=== PATIENT | male | born 1985 | race African-American/Black ===

== ENCOUNTER 2017-07-12 11:12 | Emergency (ER) | payer SELFPAY ==
[2017-07-12 11:38] VITALS: BP 133/86; PULSE 63; TEMP 98.9; BMI 31.4
--- NOTE | 2017-07-12 11:42 | PDOC ---
History of Present Illness - General Chief Complaint: Migraine Headache Stated Complaint: S/P MIGRAINE, FOGGY Time Seen by Provider: 07/12/17 11:18 History Source: Patient Exam Limitations: No Limitations - History of Present Illness Initial Comments: 32 yo M history migraine headaches presents s/p headache a few days ago. He states that typically he has photosensitivity and scotomas with his headaches. This was a typical headache, but he states that he has felt "foggy" ever since the headache. No weakness, numbness, but he has not felt like himself. He does not have headaches that wake him from sleep. He does state that his appetite has been decreased from normal and he has had poor energy. Past History - Past Medical History Allergies/Adverse Reactions: Allergies Allergy/AdvReac Type Severity Reaction Status Date / Time No Known Allergies Allergy Verified 07/12/17 11:13 Home Medications: Ambulatory Orders NK [No Known Home Medication] 07/12/17 COPD: No Other medical history: DENIES - Surgical History Abdominal Surgery: Yes (UNKNOWN) - Suicide/Smoking/Psychosocial Hx Smoking History: Never smoked Have you smoked in the past 12 months: No Information on smoking cessation initiated: No Hx Alcohol Use: No Drug/Substance Use Hx: No Substance Use Type: Marijuana Review of Systems - Review of Systems Able to Perform ROS?: Yes Comments:: GENERAL/CONSTITUTIONAL: No fever or chills. +Weakness. HEAD, EYES, EARS, NOSE AND THROAT: No change in vision. No ear pain or discharge. No sore throat. CARDIOVASCULAR: No chest pain or shortness of breath. RESPIRATORY: No cough, wheezing, or hemoptysis. GASTROINTESTINAL: No nausea, vomiting, diarrhea or constipation. GENITOURINARY: No dysuria, frequency, or change in urination. MUSCULOSKELETAL: No joint or muscle swelling or pain. No neck or back pain. SKIN: No rash NEUROLOGIC: No headache, vertigo, loss of consciousness, or change in strength/ sensation. ENDOCRINE: No increased thirst. No abnormal weight change. HEMATOLOGIC/LYMPHATIC: No anemia, easy bleeding, or history of blood clots. ALLERGIC/IMMUNOLOGIC: No hives or skin allergy. *Physical Exam - Vital Signs Last Vital Signs Temp Pulse Resp BP Pulse Ox 98.9 F 63 20 133/86 99 07/12/17 11:13 07/12/17 11:13 07/12/17 11:13 07/12/17 11:13 07/12/17 11:13 - Physical Exam Comments: GENERAL: Awake, alert, and fully oriented, in no acute distress HEAD: No signs of trauma EYES: PERRLA, EOMI, sclera anicteric, conjunctiva clear ENT: Auricles normal inspection, hearing grossly normal, nares patent, oropharynx clear without exudates. Moist mucosa NECK: Normal ROM, supple, no lymphadenopathy, JVD, or masses LUNGS: Breath sounds equal, clear to auscultation bilaterally. No wheezes, and no crackles HEART: Regular rate and rhythm, normal S1 and S2, no murmurs, rubs or gallops ABDOMEN: Soft, nontender, normoactive bowel sounds. No guarding, no rebound. No masses EXTREMITIES: Normal range of motion, no edema. No clubbing or cyanosis. No cords, erythema, or tenderness NEUROLOGICAL: Cranial nerves II through XII grossly intact. Normal speech, normal gait. Strength and sensation intact. SKIN: Warm, Dry, normal turgor, no rashes or lesions noted. ED Treatment Course - LABORATORY CBC & Chemistry Diagram: 07/12/17 12:55 07/12/17 12:55 Medical Decision Making - Medical Decision Making Labs and CTH discussed with patient. No acute findings. Recommended outpatient f /u if symptoms persist. *DC/Admit/Observation/Transfer Diagnosis at time of Disposition: Headache Qualifiers: Headache type: unspecified Headache chronicity pattern: unspecified pattern Intractability: not intractable Qualified Code(s): R51 - Headache - Discharge Dispostion Disposition: HOME Condition at time of disposition: Stable Admit: No - Referrals - Patient Instructions Printed Discharge Instructions: DI for Headache - Post Discharge Activity
[2017-07-12 13:22] LABS: BASO % 1.1 % (0-2.0); EOS % 0.4 % (0-4.5); HEMATOCRIT 47.6 % (35.4-49); HEMOGLOBIN 15.8 GM/dl (11.7-16.9); LYMPH % 29.7 % (8-40); MCH 27.9 pg (25.7-33.7); MCHC 33.2 g/dl (32.0-35.9); MEAN CELL VOLUME 84.2 fl (80-96); MEAN PLT VOLUME 9.1 fl (7.5-11.1); MONO % 7.1 % (3.8-10.2); NEUT % 61.7 % (42.8-82.8); PLATELET COUNT 186 K/MM3 (134-434); RBC 5.66 M/mm3 (4.00-5.60); RDW 12.8 % (11.9-15.9); WHITE BLOOD COUNT 4.7 K/mm3 (4.0-10.8)
[2017-07-12 13:38] LABS: ALBUMIN 4.8 g/dl (3.5-5.0); ALK PHOS 35 U/L (32-92); ANION GAP 8 (8-16); BILIRUBIN,TOTAL 1.2 mg/dl (0.2-1.0); BLOOD UREA NITROGEN 11 mg/dl (7-18); CALCIUM 9.4 mg/dl (8.4-10.2); CHLORIDE 103 mmol/L (98-107); CO2 24 mmol/L (22-28); CREATININE 0.9 mg/dl (0.6-1.3); GLUCOSE,RANDOM 110 mg/dl (74-106); SGOT/AST 19 U/L (10-42); SGPT/ALT 23 U/L (10-40); SODIUM 135 mmol/L (136-145); TOT PROT 7.7 g/dl (6.4-8.3)
== END 2017-07-12 14:44 | disposition home or self-care (01) ==
LOC: FER 11:12
DX: R51 Headache (principal)
CPT/HCPCS: 36415; 70450-TC; 80053; 82550; 82553; 85025; 99282-25

== ENCOUNTER 2019-02-03 16:34 | Emergency (ER) | payer OTHER ==
[2019-02-03 16:59] VITALS: BP 143/81; PULSE 98; TEMP 97.8; BMI 30.8
--- NOTE | 2019-02-03 17:54 | PDOC ---
History of Present Illness - General Chief Complaint: Lightheaded Stated Complaint: DIZZINESS Time Seen by Provider: 02/03/19 17:00 - History of Present Illness Initial Comments: 02/03/19 17:54 34m with no pmh presents with fogginess for the past week associated with trouble concentrating. Saw his a primary a few weeks ago who told him his blood sugar was "borderline" so he wants to have it checked out. He admits that he has a lot of stressors going on lately with work (his coworker signed a multi-million dollar contract while he missed the opportunity) , as well as with his family. He deals with the stress by binge-eating a lot of sweet treats. No vomiting induced though. He now wonders if his episodes of dizziness and fogginess have anything to do with the antibug spray he coated the interior of his car with last week. Past History - Past Medical History Allergies/Adverse Reactions: Allergies Allergy/AdvReac Type Severity Reaction Status Date / Time No Known Allergies Allergy Verified 02/03/19 16:34 Home Medications: Ambulatory Orders NK [No Known Home Medication] 07/12/17 COPD: No - Surgical History Abdominal Surgery: Yes (UNKNOWN, "TOOK OUT INFECTIOUS FLUID") - Psycho Social/Smoking Cessation Hx Smoking History: Never smoked Have you smoked in the past 12 months: No Information on smoking cessation initiated: No Hx Alcohol Use: (occasional) Drug/Substance Use Hx: No Substance Use Type: Marijuana Review of Systems - Review of Systems Able to Perform ROS?: Yes Is the patient limited Faroese proficient: No Constitutional: No: Symptoms Reported HEENTM: No: Symptoms Reported Respiratory: No: Symptoms reported Cardiac (ROS): No: Symptoms Reported ABD/GI: No: Symptoms Reported : No: Symptoms Reported Musculoskeletal: No: Symptoms Reported Integumentary: No: Symptoms Reported Neurological: Yes: See HPI Psychiatric: Yes: Stressors All Other Systems: Reviewed and Negative *Physical Exam - Vital Signs Last Vital Signs Temp Pulse Resp BP Pulse Ox 97.8 F 98 H 18 143/81 99 02/03/19 16:34 02/03/19 16:34 02/03/19 16:34 02/03/19 16:34 02/03/19 16:34 - Physical Exam General Appearance: Yes: Nourished, Appropriately Dressed. No: Apparent Distress HEENT: positive: EOMI, JASMIN, Normal ENT Inspection Respiratory/Chest: positive: Lungs Clear, Normal Breath Sounds. negative: Chest Tender, Respiratory Distress Cardiovascular: positive: Regular Rhythm, Regular Rate, S1, S2 Gastrointestinal/Abdominal: positive: Normal Bowel Sounds, Flat, Soft. negative : Tender Musculoskeletal: positive: Normal Inspection. negative: CVA Tenderness Extremity: positive: Normal Capillary Refill, Normal Inspection, Normal Range of Motion Integumentary: positive: Normal Color, Dry, Warm Neurologic: positive: Fully Oriented, Alert, Normal Mood/Affect, Normal Response ED Treatment Course - LABORATORY CBC & Chemistry Diagram: 02/03/19 18:40 02/03/19 18:40 - ADDITIONAL ORDERS Additional order review: Laboratory Results 02/03/19 17:02 POC Glucometer 83 02/03/19 17:02 POC Glucometer 83 Medical Decision Making - Medical Decision Making 02/03/19 18:14 34m with no pmh presents with fogginess for the past week associated with trouble concentrating. Glucose fingerstick within normal limits. 02/03/19 19:04 PAtient [address] out to Dr. Zambrano Discharge - Discharge Information Problems reviewed: Yes Clinical Impression/Diagnosis: Dizziness Condition: Stable Disposition: HOME - Admission No - Follow up/Referral - Patient Discharge Instructions Patient Printed Discharge Instructions: DI for Dizziness-Nonvertigo Additional Instructions: Follow up with your primary care physician within the next 3-4 days. Come back to the emergency department for any new, worsening or concerning symptom. - Post Discharge Activity
[2019-02-03] MEDS ORDERED: SODIUM CHLORIDE 500 ML IV STA (18:19)
--- NOTE | 2019-02-03 18:30 | PDOC ---
Attending Attestation - Resident Resident Name: Blayne Galarza - ED Attending Attestation I have performed the following: I have examined & evaluated the patient, The case was reviewed & discussed with the resident, I agree w/resident's findings & plan, Exceptions are as noted - HPI HPI: 02/03/19 18:21 34-year-old male denies significant past medical history presents to the emergency department with 1 week of intermittently feeling like he is in a daze. Patient describes the symptoms as lightheadedness, lasting for seconds to minutes at a time and self resolving. He denies associated headache, visual symptoms, chest pain, shortness of breath, fevers, chills, nausea, vomiting, diarrhea, abdominal pain, lower extremity edema, urinary symptoms. No treatments have been tried. Patient presented to the emergency department today because he was concerned for multiple reasons. First, he is concerned his symptoms could be due to recent spraying of his car for a spider infestation. He states the spray got into the vents and when he rides in his car, the vents release the spray. He states however, that the symptoms occur when he is not in his car as well. Secondly, he is concerned his symptoms could be due to diabetes. He states he saw a primary care physician 1 year ago who told him that his blood sugar levels were little borderline and that he needs to eat less sugary foods. Patient admits to dietary indiscretions frequently, states he can eat multiple donuts in one sitting. He is concerned his symptoms could be due to undiagnosed diabetes. Thirdly he relates his symptoms to stress at work, states he missed out on a recent multimillion dollar deal that his coworkers were able to sign on to. - Physicial Exam PE: 02/03/19 18:30 GENERAL: Awake, alert, and fully oriented, in no acute distress EYES: PERRLA, EOMI, sclera anicteric, conjunctiva clear ENT: Nares patent, oropharynx clear without exudates. Moist mucosa NECK: Normal ROM, supple, no lymphadenopathy, JVD, or masses LUNGS: Breath sounds equal, clear to auscultation bilaterally. No wheezes, and no crackles HEART: Regular rate and rhythm, normal S1 and S2, no murmurs, rubs or gallops ABDOMEN: Soft, nontender, normoactive bowel sounds. No guarding, no rebound. No masses EXTREMITIES: Normal range of motion, no edema. No clubbing or cyanosis. No cords, erythema, or tenderness NEUROLOGICAL: Normal speech, cranial nerves intact, 5/5 strength in all 4 extremities, normal sensation to light touch in all 4 extremities, normal cerebellar exam, normal gait, normal tone SKIN: Warm, Dry, normal turgor, no rashes or lesions noted. - Medical Decision Making 02/03/19 18:35 34-year-old male presents to the emergency department with intermittent lightheadedness for 1 week. Vitals unremarkable. Exam unremarkable. Patient is well-appearing. Differential includes dehydration versus anemia versus metabolic disarray, however this is unlikely as symptoms are intermittent and at times last for seconds at a time. Low likelihood of toxic exposure from recent spraying of his car as the symptoms also occur when he is not in his car. Plan to obtain basic labs, hydrate patient, and reassess. 02/03/19 19:00 Labs mostly within normal limits, however hematocrit/hgb elevated. Possible dehydration? Reports he has been doing a intermittent fasting to get his blood sugars down. States he may not have been drinking enough water. Patient is feeling better after NS bolus. Patient is well-appearing and is clinically stable for discharge home. He will follow-up with his primary care physician within 2 to 3 days. I discussed the physical exam findings, ancillary test results and final diagnoses with the patient. I answered all of the patient's questions. The patient was satisfied with the care received and felt comfortable with the discharge plan and treatment plan. The patient will call their primary care physician within 24 hours to arrange follow-up and will return to the Emergency Department with any new, persistent or worsening symptoms. Discharge - Discharge Information Problems reviewed: Yes Clinical Impression/Diagnosis: Dizziness, Dehydration, Lightheaded Condition: Improved Disposition: HOME - Admission No - Follow up/Referral - Patient Discharge Instructions Patient Printed Discharge Instructions: DI for Dizziness-Nonvertigo Additional Instructions: Follow up with your primary care physician within the next 2-3 days. Stay hydrated and drink plenty of water. Come back to the emergency department for any new, worsening or concerning symptoms. - Post Discharge Activity
[2019-02-03 18:47] LABS: BASO % 0.5 % (0-2.0); EOS % 0.5 % (0-4.5); HEMATOCRIT 52.4 % (35.4-49); HEMOGLOBIN 16.8 GM/dl (11.7-16.9); LYMPH % 38.3 % (8-40); MCH 27.2 pg (25.7-33.7); MCHC 31.9 g/dl (32.0-35.9); MEAN CELL VOLUME 85.1 fl (80-96); MEAN PLT VOLUME 9.9 fl (7.5-11.1); NEUT % 54.7 % (42.8-82.8); PLATELET COUNT 210 K/MM3 (134-434); RBC 6.16 M/mm3 (4.00-5.60); RDW 13.2 % (11.9-15.9); WHITE BLOOD COUNT 7.3 K/mm3 (4.0-10.8)
[2019-02-03 19:03] LABS: ALBUMIN 4.8 g/dl (3.4-5.0); BILIRUBIN,TOTAL 1.3 mg/dl (0.2-1); CALCIUM 9.7 mg/dl (8.5-10); CREATININE 0.9 mg/dl (0.55-1.3); POTASSIUM 4.2 mmol/L (3.5-5.1); TOT PROT 8.2 g/dl (6.4-8.2)
== END 2019-02-03 19:20 | disposition home or self-care (01) ==
LOC: FER 16:34
PROC: 3E0337Z Introduction of Electrolytic and Water Balance Substance into Peripheral Vein, Percutaneous Approach (ICD-10-PCS; principal; 2019-02-03)
DX: R42 Dizziness and giddiness (principal)
CPT/HCPCS: 36415; 80053; 82962; 85025; 99284-25

== ENCOUNTER 2020-04-30 16:47 | Emergency (ER) | payer SELFPAY ==
[2020-04-30 17:08] VITALS: BP 133/94; PULSE 74; TEMP 98; BMI 29.5
== END 2020-04-30 17:31 | disposition home or self-care (01) ==
LOC: FER 16:47
DX: K08.89 Other specified disorders of teeth and supporting structures (principal)
CPT/HCPCS: 99282-25

== ENCOUNTER 2022-05-06 20:02 | Emergency (ER) | payer OTHER ==
[2022-05-06 20:32] VITALS: BP 128/81; PULSE 79; RESP 18; TEMP 98; BMI 30.2
[2022-05-06] MEDS ORDERED: MECLIZINE HCL 25 MG TABLET (FP) PO ONE (20:49)
[2022-05-06] MEDS ORDERED: ONDANSETRON 8 MG TABLET (FP) PO ONE (20:49)
[2022-05-06] MEDS ORDERED: ONDANSETRON *ODT* 4 MG TABLET ONE (20:55)
[2022-05-06] MEDS ORDERED: MECLIZINE HCL 25 MG TABLET (FP) ONE (21:09)
== END 2022-05-06 22:04 | disposition home or self-care (01) ==
LOC: FER 20:02
DX: R42 Dizziness and giddiness (principal)
CPT/HCPCS: 82962; 99283-25